=== PATIENT | female | born 1970 | race Caucasian/White ===

== ENCOUNTER 2017-04-04 01:18 | Emergency (ER) | payer OTHER ==
[~2017-04-04] VITALS: Ht 167.6 cm; Wt 71.2 kg
== END 2017-04-04 11:16 | disposition home or self-care (01) ==
LOC: ER 01:18
DX: K52.9 Noninfective gastroenteritis and colitis, unspecified (principal)

== ENCOUNTER → 2017-06-18 | Emergency (ER) | payer OTHER ==
[~2017-06-18] VITALS: Ht 167.6 cm; Wt 69.4 kg
== END | disposition home or self-care (01) ==
LOC: ER 19:06
DX: K29.70 Gastritis, unspecified, without bleeding (principal)

== ENCOUNTER 2021-11-21 17:30 | Emergency (ER) | payer OTHER ==
[~2021-11-21] VITALS: Ht 167.6 cm; Wt 68.0 kg
== END 2021-11-21 21:52 | disposition home or self-care (01) ==
LOC: ER 17:30
DX: G43.909 Migraine, unspecified, not intractable, without status migrainosus (principal)